=== PATIENT | female | born 1970 | race Caucasian/White ===

== ENCOUNTER 2024-06-01 18:03 | Emergency (ER) | payer OTHER, SELFPAY ==
[2024-06-01 18:10] VITALS: BP 122/72; PULSE 81; RESP 16; TEMP 36.8; O2SAT 100
--- NOTE | 2024-06-01 18:22 | ED.URI ---
HPI - URI/Sore Throat General Chief Complaint: Upper Respiratory Infection Stated Complaint: Sore Throat/Body Aches Time Seen by Provider: 06/01/24 18:40 Source: patient and RN notes reviewed Mode of arrival: ambulatory Limitations: no limitations History of Present Illness HPI Narrative: 54-year-old female presents concern for sore throat, fatigue, body aches that started couple of days ago. Reports her daughter has similar symptoms. MD elicited complaint: sore throat Related Data Home Medications Medication Instructions Recorded Confirmed albuterol 06/01/24 Allergies Allergy/AdvReac Type Severity Reaction Status Date / Time clindamycin Allergy Intermediate HIVES Verified 10/15/19 18:54 mold Allergy Mild Sneezing Verified 10/15/19 18:54 pollen extracts Allergy Mild Sneezing Verified 10/15/19 18:54 Review of Systems Review of Systems: CONSTITUTIONAL: Reports malaise, fatigue EYES: Denies visual changes, redness, or discharge. ENT: Denies rhinorrhea, congestion, sinus pain, otalgia. Reports sore throat. CARDIOVASCULAR: Denies chest pain, palpitations, or edema. RESPIRATORY: Denies cough. Denies dyspnea. GASTROINTESTINAL: Denies abdominal pain, nausea, vomiting, diarrhea SKIN: Denies rash or itching. MUSCULOSKELETAL: Reports myalgia. NEUROLOGIC: Reports headache. All systems reviewed & are unremarkable except as noted in HPI and below PMFSH Past Medical History Medical History (Updated 06/01/24 @ 19:11 by Tamra Ramos NP) Asthma Insomnia Comments At time of signature, agree with nursing past medical, surgical, social and family history. There is no relevant family history pertinent to the presenting complaint Exam Narrative: GENERAL: Well-appearing, well-nourished, and in no acute distress. HEAD: Normocephalic EYES: PERRLA, conjunctivae clear ENT: Nares clear. Mucous membranes moist. TM pearly bender with dull light reflex bilaterally; no tragal tenderness. Oropharynx not erythematous without lesions. Tonsils not enlarged and without exudate, no drooling, no hoarseness, no trismus, uvula midline. NECK: Supple. No lymphadenopathy CHEST: Clear to auscultation, breath sounds equal. No wheezing, rhonchi, rales, or stridor. No respiratory distress, speaks in full sentences. HEART: Regular rate and rhythm. No murmur heard. SKIN: Warm, dry, no rash. NEURO: Alert and oriented x3. PSYCH: Normal mood and affect Course Course Emergency Course: Patient is aware of diagnosis, understands and agrees to treatment plan. Anticipatory guidance given. Patient agrees to follow-up as directed and is aware of reasons to seek care at the emergency department. Portions of this record may have been created with voice recognition software Level of Care: Express Care Visit Vital Signs Vital signs: Vital Signs Temperature 98.3 F 06/01/24 18:10 Pulse Rate 81 06/01/24 18:10 Respiratory Rate 16 06/01/24 18:10 Blood Pressure 122/72 06/01/24 18:10 Pulse Oximetry 100 06/01/24 18:10 Temperature 98.3 F 06/01/24 18:10 Pulse Rate 81 06/01/24 18:10 Respiratory Rate 16 06/01/24 18:10 Blood Pressure 122/72 06/01/24 18:10 Pulse Oximetry 100 06/01/24 18:10 Reviewed. MDM - URI/Sore Throat MDM Narrative Medical decision making narrative: Differential diagnosis considered: Lyon virus, strep pharyngitis, allergic rhinitis, upper respiratory tract infection, sinusitis, rhinosinusitis, nasopharyngitis. viral pharyngitis, otitis media, otitis externa, pneumonia, bronchitis, viral cough syndrome, viral syndrome, and influenza. Exam findings show no acute concerns or changes; patient is non-toxic appearing and is in no distress. Patient is appropriate for outpatient treatment and follow-up. Lab Data Attestation: I reviewed the patient's lab results. Labs: Lab Results 06/01/24 Range/Units 18:47 POC Grp A Strep Screen Negative Critical Care Time Critical Care
[2024-06-01 18:50] LABS: EDSTREPNEGPOS1 Negative
== END 2024-06-01 19:17 | disposition home or self-care (01) ==
PROVIDERS: Emergency Provider Nurse Practitioner
DX: J06.9 Acute upper respiratory infection, unspecified (principal); J45.909 Unspecified asthma, uncomplicated
CPT/HCPCS: 87081; 87880; 99213; G0463

== ENCOUNTER 2024-08-31 16:12 | Emergency (ER) | payer OTHER, SELFPAY ==
--- NOTE | 2024-08-31 16:16 | ED.URI ---
HPI - URI/Sore Throat General Chief Complaint: Upper Respiratory Infection Stated Complaint: cough/throat Time Seen by Provider: 08/31/24 16:28 Source: patient and RN notes reviewed Mode of arrival: ambulatory Limitations: no limitations History of Present Illness HPI Narrative: 54-year-old female presents concern for 1 and half week history of dry barking cough. She reports it has gotten worse and when she lays down she feels short of breath. She has an albuterol inhaler that she has used but she feels like it has not helped. She last used about 3 hours ago. She denies fever. She reports postnasal drip and sore throat. MD elicited complaint: cough Related Data Home Medications Medication Instructions Recorded Confirmed albuterol sulfate 90 mcg/actuation inhalation 08/31/24 aerosol inhaler Allergies Allergy/AdvReac Type Severity Reaction Status Date / Time clindamycin Allergy Intermediate HIVES Verified 10/15/19 18:54 mold Allergy Mild Sneezing Verified 10/15/19 18:54 pollen extracts Allergy Mild Sneezing Verified 10/15/19 18:54 Review of Systems Review of Systems: CONSTITUTIONAL: Denies malaise, chills, sweats, or fever. EYES: Denies visual changes, redness, or discharge. ENT: Reports rhinorrhea, postnasal drip. Denies congestion, sinus pain, otalgia and sore throat. CARDIOVASCULAR: Denies chest pain, palpitations, or edema. RESPIRATORY: Reports barking cough. Reports positional dyspnea. GASTROINTESTINAL: Denies abdominal pain, nausea, vomiting, diarrhea SKIN: Denies rash or itching. MUSCULOSKELETAL: Denies myalgia. NEUROLOGIC: Denies headache. All systems reviewed & are unremarkable except as noted in HPI and below PMFSH Past Medical History Medical History (Updated 08/31/24 @ 16:36 by Tamra Ramos NP) Asthma Insomnia Comments At time of signature, agree with nursing past medical, surgical, social and family history. There is no relevant family history pertinent to the presenting complaint Exam Narrative: GENERAL: Well-appearing, well-nourished, and in no acute distress. HEAD: Normocephalic EYES: PERRLA, conjunctivae clear ENT: Nares clear. Mucous membranes moist. TM pearly bender with dull light reflex bilaterally; no tragal tenderness. Oropharynx not erythematous without lesions. Tonsils not enlarged and without exudate, no drooling, no hoarseness, no trismus, uvula midline. NECK: Supple. No lymphadenopathy CHEST: Clear to auscultation, breath sounds equal. No wheezing, rhonchi, rales, or stridor. No respiratory distress, speaks in full sentences. Persistent cough noted HEART: Regular rate and rhythm. No murmur heard. SKIN: Warm, dry, no rash. NEURO: Alert and oriented x3. PSYCH: Normal mood and affect Course Course Emergency Course: Patient is aware of diagnosis, understands and agrees to treatment plan. Anticipatory guidance given. Patient agrees to follow-up as directed and is aware of reasons to seek care at the emergency department. Portions of this record may have been created with voice recognition software Level of Care: Express Care Visit Vital Signs Vital signs: Reviewed. MDM - URI/Sore Throat MDM Narrative Medical decision making narrative: Differential diagnosis considered: Lyon virus, strep pharyngitis, allergic rhinitis, upper respiratory tract infection, sinusitis, rhinosinusitis, nasopharyngitis. viral pharyngitis, otitis media, otitis externa, pneumonia, bronchitis, viral cough syndrome, viral syndrome, and influenza. Exam findings show no acute concerns or changes; patient is non-toxic appearing and is in no distress. Patient is appropriate for outpatient treatment and follow-up. Lab Data Attestation: I reviewed the patient's lab results. Critical Care Time Critical Care Time Critical Care Time: No Discharge Plan Discharge Clinical Impression: Lower respiratory tract infection Patient Disposition: Home, Self-Care Condition: Stable Instructions: Antibiotic Form, Acute Cough (ED) Additional Instructions: Take medications as prescribed Recommend antihistamine such as Benadryl at night time and Zyrtec or Hazel during the day Cough syrup may cause drowsiness; avoid driving or take it at night time. Continue to Use your inhaler as needed for cough, wheezing, shortness of breath or chest tightness. Also, recommend symptomatic treatment includes: rest, fluids, and increase humidity of the air at home. Recommend Acetaminophen as directed on the bottle to reduce fever, pain, headache. Avoid smoking/second-hand smoke. Please schedule a follow-up visit with your personal physician for further evaluation and treatment within 3-5days. If your symptoms persist, change or worsen significantly before you can contact your personal physician then please, without delay, go to the emergency department for further evaluation. Prescriptions: New azithromycin [Zithromax Z-Jim] 250 mg tablet See Rx Instructions .ROUTE .COMPLEX Qty: 6 0RF Rx Instructions: take 500 mg today (day 1), then 250 mg for 4 days (days 2-5) codeine-guaifenesin [Virtussin AC] 10-100 mg/5 mL liquid 5 ml PO Q6H PRN (Reason: cough) Qty: 120 0RF methylprednisolone [Medrol (Jim)] 4 mg tablets,dose pack See Rx Instructions .ROUTE .COMPLEX Qty: 21 0RF Rx Instructions: orally per package directions No Action albuterol sulfate 90 mcg/actuation HFA aerosol inhaler INHALATION Follow-up/Referrals: Jacques,Vikki Andersen CNP [Primary Care Provider] - Stand Alone Forms: Work/School Release IP Time of Disposition: 16:39
[2024-08-31 16:19] VITALS: BP 132/82; PULSE 87; RESP 16; TEMP 37; O2SAT 99
== END 2024-08-31 16:43 | disposition home or self-care (01) ==
PROVIDERS: Emergency Provider Nurse Practitioner; PCP Nurse Practitioner
DX: J22 Unspecified acute lower respiratory infection (principal); J45.909 Unspecified asthma, uncomplicated
CPT/HCPCS: 99213; G0463

== ENCOUNTER 2025-05-02 16:45 | Emergency (ER) | payer OTHER, SELFPAY ==
--- OUTSIDE RECORDS SUMMARY | 2025-05-02 16:47 | XMS_ITS | Clinical Summary ---
Author Organization [facility] Address [address] [place] [address] Care Team Providers Care Operations Support Coordinator Name Role Phone Courtney Jeffers DO Primary Care Provider [phone] [facility],non-owned Affiliates and Associated Physician Practices is amultiple site organization consisting of ambulatory clinics and hospital sitesin [place], [place], [place] and [place]. This disclosure is being madepursuant to the Care Everywhere program and may not contain all information available regarding this patient. Last updated 18.[facility] Allergies Active Allergy Reactions Criticality Noted Date Comments Clindamycin Urticaria Medium 09/02/2018 Dog Epithelium Other,Wheezing High 04/30/2021 Precipitates an Asthma attack. Medications * Be aware that medications may not be up to date on this document. Alwaysverify current medications with the patient. zolpidem (AMBIEN) 10 MG tablet Take 1 (one) tablet by mouth nightly as needed FOR SLEEP 02/27/2022 Active albuterol HFA (Proventil; Ventolin; Proair) 108 (90 Base) MCG/ACT inhaler Inhale 2 (two) puffs by mouth every 6 hours as needed 11/03/2022 Active Active Problems Problem Noted Date Diagnosed Date Solar lentigo 07/20/2020 Skin fissure 07/20/2020 Seborrheic keratosis 07/20/2020 Melanocytic nevi of trunk 07/20/2020 Family history of melanoma 07/20/2020 Atopic dermatitis 06/06/2019 Overview (07/20/2020): Last Assessment & Plan: Rx given, use as directed. Family History Medical History Relation Name Comments None Known Brother Cancer - Skin, Melanoma Father None Known Maternal Aunt None Known Maternal Grandfather None Known Maternal Grandmother None Known Maternal Uncle None Known Mother None Known Other None Known Paternal Aunt None Known Paternal Grandfather None Known Paternal Grandmother None Known Paternal Uncle None Known Sister Asthma Neg Hx CVA Neg Hx Cancer - Breast Neg Hx Cancer - Other Neg Hx Cancer - Skin, Non Melanoma Neg Hx Eczema Neg Hx Hemophilia Neg Hx Psoriasis Neg Hx Relation Name Status Comments Brother Father Maternal Aunt Maternal Grandfather Maternal Grandmother Maternal Uncle Mother Other Paternal Aunt Paternal Grandfather Paternal Grandmother Paternal Uncle Sister Social History Tobacco Use Types Packs/Day Years Used Date Smoking Tobacco: Never Smokeless Tobacco: Never Tobacco Cessation:Counseling Given: Yes Comments No Sex and Gender Information Value Date Recorded Sex Assigned at Not on file 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 Gender Identity Not on file Sexual Orientation Not on file Last Filed Vital Signs Vital Sign Reading Time Taken Comments Blood Pressure 112/70 11/12/2019 4:24 PM ROLLER LEVELER OPERATOR Pulse 76 11/12/2019 4:24 PM ROLLER LEVELER OPERATOR Temperature 37.1 C (98.7 F) 11/12/2019 4:24 PM ROLLER LEVELER OPERATOR Respiratory Rate 18 11/12/2019 4:24 PM ROLLER LEVELER OPERATOR Oxygen Saturation 98% 11/12/2019 4:24 PM ROLLER LEVELER OPERATOR Inhaled Oxygen Concentration - - Weight 63.5 kg (140 lb) 11/12/2019 4:24 PM ROLLER LEVELER OPERATOR Height 171.5 cm (5' 7.5) 11/12/2019 4:24 PM ROLLER LEVELER OPERATOR Body Mass Index 21.6 11/12/2019 4:24 PM ROLLER LEVELER OPERATOR Plan of Treatment Health Maintenance Due Date Last Done Comments COLOGUARD (AGES 45-75) - COLON CA SCREENING 1968 CT COLONOGRAPHY - COLON CA SCREENING 1968 FLEX SIG - COLON CA SCREENING 1968 LIPID TESTING 1968 HIV SCREENING 1983 HEPATITIS C SCREENING 04/23/1986 DTAP/TDAP/TD VACCINES (1 - Tdap) 1987 HEPATITIS B VACCINE (1 of 3 - 19+ 3-dose series) 1987 PNEUMOCOCCAL VACCINE 50+ (1 of 1 - PCV) 2018 ZOSTER VACCINE (1 of 2) 2018 MAMMOGRAM 06/23/2020 06/23/2018 FIT - COLON CA SCREENING 07/06/2020 07/06/2019 PAP SMEAR 07/06/2022 07/06/2019 COVID-19 VACCINE (3 - season) 2024 07/20/2021, 10/26/2020 DEPRESSION SCREENING 09/28/2024 INFLUENZA VACCINE (#1) 2025 , 07/20/2020, 08/05/2019, Additional history exists COLON MONITORING 06/14/2028 06/14/2018 COLONOSCOPY - COLON CA SCREENING 06/14/2028 06/14/2018 Colorectal Cancer Screening 06/14/2028 HIB VACCINE Aged Out No longer eligi ble based on patient's age to complete this topic HPV VACCINE Aged Out No longer eligi ble based on patient's age to complete this topic MENINGOCOCCAL (Group B) VACCINE SHARED DECISION-MAKING Aged Out No longer eligible based on patient's age to complete this topic MENINGOCOCCAL GROUPS A/C/Y/W VACCINE Aged Out No longer eligible based on patient's age to complete this topic Insurance AETNA AETNA Care Teams Operations Support Coordinator Relationship Specialty Start Date End Date Courtney Jeffers DO [address] [phone] PCP - General Family Medicine 09/11/23
--- OUTSIDE RECORDS SUMMARY | 2025-05-02 16:47 | XMS_ITS | Encounter Summary ---
Author Organization [facility] Address 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 Gender Identity Not on file Sexual Orientation Not on file documented as of this encounter Plan of Treatment Not on file documented as of this encounter Procedures Procedure Name Priority Date/Time Associated Diagnosis Comments CBC WITH DIFFERENTIAL Routine 05/30/2006 6:14 PM CDT CBC WITH DIFFERENTIAL Routine 05/30/2006 6:14 PM CDT HCG QUANTITATIVE, BLOOD Routine 05/30/2006 6:14 PM CDT documented in this encounter Results * (ABNORMAL) HCG QUANTITATIVE, BLOOD (05/30/2006 6:14 PM CDT) HCG QUANT, BLOOD 12,724(H) 0 - 5 mIU/mL INTERFACE SYSTEM Comment: Result of 5 - 25 mIU/mL is indeterminant for , repeat of test recommemded in 48 hours. Reference Range: Gestational Age: 3 Weeks 5.8 - 71.2 mIU/mL 4 Weeks 9.5 - 750 mIU/mL 5 Weeks 217 - 7138 mIU/mL 6 Weeks 158 - 31,795 mIU/mL 7 Weeks 3697 - 163,563 mIU/mL 8 Weeks 32,065 - 149,571 mIU/mL 9 Weeks 63,803 - 151,410 mIU/mL 10 Weeks 46,509 - 186,977 mIU/mL 12 Weeks 27,832 - 210,612 mIU/mL 14 Weeks 13,950 - 62,530 mIU/mL 15 Weeks 12,039 - 70,971 mIU/mL 16 Weeks 9040 - 56,451 mIU/mL 17 Weeks 8175 - 55,868 mIU/mL 18 Weeks 8099 - 58,176 mIU/mL Heterophile antibodies and other interfering substances in the serum of some patients may cause a false-positive result in this assay. Before making a diagnosis of malignancy or ectopic ,the result of thi s test should be confirmed with a urine HCG test and correlated with other clinical evidence. RESULT COMMENT, CHEMISTRY INTERFACE SYSTEM Comment: Results called to Noni at 05/30/2006 7:25 PM and read back verified. Preliminary report given to Camille 19:12. 05/30/2006 6:14 PM CDT us Historical Provider CHEMISTRY ORDERABLES Final R esult INTERFACE SYSTEM Refer to clinic/hospital department * CBC WITH DIFFERENTIAL (05/30/2006 6:14 PM CDT) NEUTROPHILS 65 45 - 70 % INTERFAC E SYSTEM LYMPHOCYTES 21 16 - 45 % INTERFAC E SYSTEM MONOCYTES 11 3 - 13 % INTERFACE SYSTEM EOSINOPHILS 3 0 - 7 % INTERFAC E SYSTEM BASOPHILS 1 0 - 2 % INTERFACE SYSTEM NEUTROPHIL ABSOLUTE 6.01 1.90 - 7.00 K/uL INTERFACE SYSTEM LYMPHOCYTE ABSOLUTE 1.98 0.70 - 4.50 K/uL INTERFACE SYSTEM MONOCYTE ABSOLUTE 0.98 0.10 - 1.30 K/uL INTERFACE SYSTEM EOSINOPHIL ABSOLUTE 0.26 0.00 - 0.70 K/uL INTERFACE SYSTEM BASOPHILS ABSOLUTE 0.06 0.00 - 0.20 K/uL INTERFACE SYSTEM 05/30/2006 6:14 PM CDT Historical Provider HEMATOLOGY ORDERABLES Final Result Performing Organization Address City/State/[facility] Co de Phone Number INTERFACE SYSTEM Refer to clinic/hospital department * CBC WITH DIFFERENTIAL (05/30/2006 6:14 PM CDT) WBC 9.3 4.0 - 9.8 K/uL INTERFACE SYSTEM RBC 4.37 3.90 - 4.90 M/uL INTERFACE SYSTEM HEMOGLOBIN 13.2 11.8 - 14.8 g/dL INTERFACE SYSTEM HEMATOCRIT 38.0 35.5 - 44.0 % INTERFACE SYSTEM MCV 87.0 82.0 - 99.0 fL INTERFACE SYSTEM MCH 30.2 27.2 - 32.6 pg INTERFACE SYSTEM MCHC 34.7 31.5 - 35.5 % INTERFACE SYSTEM RDW 13.0 11.5 - 14.5 % INTERFACE SYSTEM RDW-STDEV 41.6 37.1 - 48.7 fL INTERFACE SYSTEM PLATELETS 321 140 - 350 K/uL INTERFACE SYSTEM MPV 10.1 9.3 - 12.4 fL INTERFACE SYSTEM 05/30/2006 6:14 PM CDT Historical Provider HEMATOLOGY ORDERABLES Final Result Performing Organization Address City/State/[facility] Co de Phone Number INTERFACE SYSTEM Refer to clinic/hospital department documented in this encounter Visit Diagnoses Diagnosis Threatened , antepartum- Primary documented in this encounter
--- OUTSIDE RECORDS SUMMARY | 2025-05-02 16:47 | XMS_ITS | Referral Summary ---
Author Organization [facility] Medical [facility] Building B Address [address] [place] [address] Care Team Providers Care Clinical Research Assistant Name Role Phone Stefano Dumont MD Unavailable [phone] Kathryn Noriega NP Unavailable [phone] Vikki Hanna NP Primary Care Provider [phone] Encounters Date Type Department Care Team Description 03/16/2025 Results Follow-Up [facility] Primary Care at [address] [place] [id number] Vikki Hanna NP Screening Mammogram Bilateral W Barak 03/16/2025 8:24 AM CDT - 03/16/2025 11:59 PM CDT Hospital Encounter [facility] [address] [place] [id number] Screening mammogram, encounter for Discharge Disposition: Discharge to home or self care 03/10/2025 12:47 PM CDT - 03/10/2025 3:44 PM CDT Emergency [facility] Department [address] [place] [address] Acute midline low back pain without sciatica (Primary Dx); Gall stones Discharge Disposition: Discharge to home or self care from Last 3 Months Allergies Active Allergy Reactions Criticality Noted Date Comments Clindamycin Urticaria Medium 09/02/2018 Clindamycin Hcl Hives,Rash Medium 02/12/2015 Dog Dander Chest tightness,Wheezing High 04/30/2021 Precipitates an Asthma attack. Medications albuterol HFA (PROVENTIL HFA,VENTOLIN HFA,PROAIR HFA) 90 mcg/actuation inhalerIndicatio ns:Moderate persistent asthma without complication INHALE 2 PUFFS EVERY 6 HOURS NEEDED FOR WHEEZING 6.7 each 3 09/05/20 24 Active montelukast (SINGULAIR) 10 mg tablet Take 1 tablet (10 mg total) by mouth nightly 90 tablet 3 09/30/19 25 026 Active lidocaine (LIDODERM) 5 % Place 1 patch on the skin daily for 12 hours for 14 days Remove & discard patch within 12 hours or as directed by MD. 14 patch 03/10/20 25 Active naproxen (NAPROSYN) 500 mg tablet Take 1 tablet (500 mg total) by mouth 2 (two) times a day with meals 30 tablet 03/10/20 25 Active methocarbamoL (ROBAXIN) 500 mg tablet Take 1 tablet (500 mg total) by mouth 2 (two) times a day 20 tablet 03/10/20 25 Active zolpidem (AMBIEN) 10 mg tabletIndication s:Insomnia secondary to anxiety TAKE 1 TABLET BY MOUTH AT BEDTIME NEEDED FOR SLEEP 15 tablet 05/01/20 25 Active zolpidem (AMBIEN) 10 mg tabletIndication s:Insomnia secondary to anxiety TAKE 1 TABLET BY MOUTH EVERY DAY AT BEDTIME NEEDED FOR SLEEP 15 tablet 03/30/20 25 025 Discontinued Active Problems Problem Noted Date Diagnosed Date Annual physical exam 11/04/2023 Assessment & Plan (11/05/2023 5:18 PM PHOTOGRAPHIC EQUIPMENT TECHNICIAN): - New or chronic worsening conditions: no significant acute issues on this visit - Mental health: no significant psychiatric/mental health conditions affecting her day to day functioning - Dental health: Up to date with regular dental care and cleaning. Discussed importance of regular tooth brushing, flossing, and dental visits. - Nutrition: Stressed importance of moderation in sodium/caffeine intake, saturated fat and cholesterol, caloric balance, sufficient intake of fresh fruits, vegetables - Exercise: Stressed the importance of regular exercise - Immunizations: Age and sex appropriate immunizations reviewed and offered Bilateral foot pain 11/03/2022 Assessment & Plan (11/03/2022 3:38 PM PHOTOGRAPHIC EQUIPMENT TECHNICIAN): Patient already has an established relationship with a production control technologist. Patient states that she would call on her own and schedule an appointment. In the meantime, may try [id number] pain reliever of choice. Scalp mass 10/25/2020 Assessment & Plan (10/25/2020 1:26 PM PHOTOGRAPHIC EQUIPMENT TECHNICIAN): Referred to plastic surgeon for further evaluation and management. Family history of melanoma 07/20/2020 Melanocytic nevi of trunk 07/20/2020 Seborrheic keratosis 07/20/2020 Solar lentigo 07/20/2020 Atopic dermatitis 06/06/2019 Assessment & Plan (06/06/2019 8:31 PM CDT): Rx given, use as directed. 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 Assessment & Plan (10/28/2021 10:45 PM PHOTOGRAPHIC EQUIPMENT TECHNICIAN): Clinically improved, continue current prescription medications. Assessment & Plan (04/25/2021 11:15 AM CDT): Clinically improved, continue current meds. Assessment & Plan (10/25/2020 1:26 PM PHOTOGRAPHIC EQUIPMENT TECHNICIAN): Stable. Cont. Current meds. Assessment & Plan (04/24/2020 1:11 PM CDT): Rx sent, ambien 5 - 10 mg qhs prn insomnia. Assessment & Plan (10/24/2019 8:52 AM PHOTOGRAPHIC EQUIPMENT TECHNICIAN): Clinically improved, continue current meds. Assessment & Plan (05/02/2019 3:29 PM CDT): Clinically improved, continue current meds. Zolpidem 5 mg qhs prn. Assessment & Plan (04/14/2019 6:36 PM CDT): Trial of ambien. Will follow. Fatigue 04/14/2019 Assessment & Plan (04/14/2019 6:35 PM CDT): Labs ordered, will follow. Body mass index (BMI) of 24.0 to 24.9 in adult 0 04/14/2019 Assessment & Plan (11/05/2023 5:17 PM PHOTOGRAPHIC EQUIPMENT TECHNICIAN): Wt Readings from Last 3 Encounters: 11/04/23 69.6 kg (153 lb 8 oz) 11/03/22 69.6 kg (153 lb 8 oz) 10/28/21 68.9 kg (151 lb 12.8 oz) Body mass index is 24.04 kg/m . -Discussed recommendations for exercise at least 30 minutes moderate to vigorous exercise most days of the week. (minimum 150 minutes weekly) -Discussed importance of well-balanced diet. Asthma 08/31/2014 Overview (01/02/2017): Asthma Assessment & Plan (11/03/2022 3:38 PM PHOTOGRAPHIC EQUIPMENT TECHNICIAN): Asymptomatic, at baseline, continue current prescription medications, albuterol. Assessment & Plan (04/24/2020 1:11 PM CDT): Asx. Cont current mgmt. Assessment & Plan (10/24/2019 8:52 AM PHOTOGRAPHIC EQUIPMENT TECHNICIAN): Stable. Cont. Current meds. Assessment & Plan (04/14/2019 6:36 PM CDT): At baseline, continue current meds. Albuterol HFA inh 2 puffs q6h prn. Assessment & Plan (03/25/2018 3:38 PM CDT): Asthma is improving with treatment. The patient is experiencing monthly daytime asthma symptoms. She is experiencing monthly nighttime asthma symptoms. Discussed monitoring symptoms and use of quick-relief medications and contacting us early in the course of exacerbations. Warning signs of respiratory distress were reviewed with the patient. Seasonal allergic rhinitis 08/31/2014 Overview (01/02/2017): Seasonal nasal allergies Assessment & Plan (08/05/2019 10:09 AM PHOTOGRAPHIC EQUIPMENT TECHNICIAN): Has been taking Sudafed, advised patient to switch to Zyrtec or Claritin for daily use. Resolved Problems Problem Noted Date Diagnosed Date Resolved Date Mild reactive airways disease 09/30/2024 09/30/2024 Establishing care with jackeline wadsworth, encounter for 06/29/2024 09/30/2024 Skin fissure 07/20/2020 11/03/2022 Generalized anxiety disorder 04/14/2019 04/24/2020 Assessment & Plan (10/24/2019 10:23 AM PHOTOGRAPHIC EQUIPMENT TECHNICIAN): Stable, improved with rest. Assessment & Plan (05/02/2019 3:28 PM CDT): Trial of Lexapro. Encouraged counseling, patient will call her insurance company for an in-network referral. Assessment & Plan (04/14/2019 6:35 PM CDT): Encouraged counseling. Encouraged patient to contact her insurance company for an in-network referral. Close f/u. Go to nearest ER if you feel you will be a harm to yourself or others. Immunizations Immunization Administration Dates Next Due Influenza, Quadrivalent, Rena l Culture-based MDCK, Preservative Free, Antibiotic Free, Intramuscular 07/20/2020 Influenza, Quadrivalent, Rec ombinant, Egg Free, Preservative Free, Intramuscular 06/30/2018 Influenza, Quadrivalent, Spl it, Preservative Free, Intramuscular 08/23/2022,06/17/2021,08/05/2019 Influenza, Trivalent, IM (MDV) 05/10/2014,2012 Influenza, Trivalent, Preser vative Free, Intramuscular 06/12/2015 Influenza, Unspecified 06/29/2024(Deferr ed: Patient Refused),07/06/2023(Deferred: Patient Refused),11/03/2022(Deferred: Patient Refused),07/18/2018,08/17/2017 Moderna SARS-CoV-2 Monovalen t Vaccination (12+ YRS) 07/20/2021,10/26/2020 Pneumococcal Conjugate Pcv20 06/12/2023 Tdap 02/18/2019,11/29/2008 ZOSTER Recombinant 08/23/2022,03/07/2022 Social History Tobacco Use Types Packs/Day Years Used Date Smoking Tobacco: Never Smokeless Tobacco: Never Tobacco Cessation:Counseling Given: Not Answered Alcohol Use Standard Drinks/Week Comments Yes 0 (1 standard drink = 0.6 oz pur e alcohol) AUDIT-C Answer Date Recorded Q1: How often do you have a drink containing alc ohol? Monthly or less 11/04/2023 Q2: How many drinks containi ng alcohol do you have on a typical day when you are drinking? 1 or 2 11/04/2023 Q3: How often do you have si x or more drinks on one occasion? Never 11/04/2023 PHQ-2 Answer Date Recorded PHQ-2 Total Score (If total score is 3 or more points, staff should administer the PHQ-9) 0 06/29/2024 Personal Safety Answer Date Recorded Have you ever been in or are you currently in a harmful physical or emotional relationship or is someone making you feel afraid or unsafe? Denies 03/10/2025 Comments No Sex and Gender Information Value Date Recorded Sex Assigned at Not on file Legal Sex Female 11:21 PM PHOTOGRAPHIC EQUIPMENT TECHNICIAN Gender Identity Female 10/21/2022 12:24 PM PHOTOGRAPHIC EQUIPMENT TECHNICIAN Sexual Orientation Straight 10/21/2022 12 :24 PM PHOTOGRAPHIC EQUIPMENT TECHNICIAN Last Filed Vital Signs Vital Sign Reading Time Taken Comments Blood Pressure 113/77 03/10/2025 11:07 AM CDT Pulse 83 03/10/2025 11:07 AM CDT Temperature 36.8 C (98.2 F) 03/10/2025 11:07 AM CDT Respiratory Rate 16 03/10/2025 11:07 AM CDT Oxygen Saturation 99% 03/10/2025 11:07 AM CDT Inhaled Oxygen Concentration - - Weight 71.7 kg (158 lb) 03/16/2025 8:29 AM CDT Height 170.2 cm (5' 7) 03/16/2025 8:29 AM CDT Body Mass Index 24.75 03/16/2025 8:29 AM CDT Plan of Treatment Not on file Procedures Procedure Name Priority Date/Time Associated Diagnosis Comments SCREENING MAMMOGRAM BILATERAL W BARAK Schedule Routine, Read Routine (OP Routine) 03/16/2025 8:39 AM CDT Screening mammogram, encounter for US RUQ ED 03/10/2025 3:[address] ABDOMEN PELVIS WO CONTRAST ED 03/10/2025 1:57 PM CDT URINALYSIS, MICROSCOPIC ONLY STAT 03/10/2025 1:47 PM CDT URINALYSIS AND REFLEX TO MICROSCOPIC AND CULTURE STAT 03/10/2025 1:47 PM CDT EGFR STAT 03/10/2025 1:13 PM CDT DIFFERENTIAL AUTO STAT 03/10/2025 1:1 3 PM CDT COMPREHENSIVE METABOLIC PANEL STAT 03/10/2025 1:13 PM CDT CBC WITH AUTO DIFFERENTIAL STAT 03/10/2025 1:13 PM CDT HEPATITIS C ANTIBODY Routine 10/25/2020 11:14 AM PHOTOGRAPHIC EQUIPMENT TECHNICIAN Encounter for hepatitis C screening test for low risk patient COLONOSCOPY 06/14/2018 10:12 AM CDT HM PAP SMEAR WITH HPV Routine 06/17/2017 from Last 3 Months or Most Recently Relevant to Health Maintenance Results * Screening Mammogram Bilateral W Barak (03/16/2025 8:39 AM CDT) Anatomical Region Laterality Modality Breast Bilateral Mammography Impressions 03/16/2025 9:18 AM CDT Bilateral No evidence of malignancy in either breast. OVERALL BI-RADS FINAL ASSESSMENT: 1 - Negative RECOMMENDATION: Recommend bilateral annual screening mammography. Narrative 03/16/2025 9:18 AM CDT EXAMINATION: Screening Mammogram Bilateral W Barak: 03/16/2025 COMPARISON: Relevant prior studies available at the time of interpretation were reviewed. TECHNIQUE: Mammography was performed with 2D and digital breast tomosynthesis (DBT) images. CAD was utilized. BREAST PARENCHYMAL COMPOSITION: The breasts are heterogeneously dense, which may obscure small masses. FINDINGS: Bilateral There is no suspicious mass, calcification, or architectural distortion in either breast. us Self Screening Mammogram IMG MAMMO PROCEDURES Fi nal Result * US RUQ (03/10/2025 3:07 PM CDT) Anatomical Region Laterality Modality Abdomen N/A Ultrasound 03/10/2025 3:12 PM CDT Narrative 03/10/2025 3:16 PM CDT EXAM DESCRIPTION: US RUQ REASON FOR STUDY: Concern for cholecystitis on CT, flank pain and back pain on the right today. TECHNIQUE: Ultrasound of the right upper quadrant of the abdomen was performed with grayscale and color doppler. COMPARISON: 03/10/2025 FINDINGS: PANCREAS: Visualized portions of the pancreas are within normal limits. Portions of the pancreatic body and tail are obscured due to bowel gas. LIVER: The liver appears normal in echotexture and echogenicity. No focal lesion identified. The main portal vein is patent with antegrade flow. GALLBLADDER: Gallbladder is difficult to visualized, it appears contracted. Internal echoes suggesting debris and/or small stones identified. No marked wall thickening, the wall measures 0.29 cm. No surrounding fluid collection. Patient does report tenderness while scanning over the fundus. BILIARY: There is no intrahepatic or extrahepatic biliary ductal dilatation. Common bile duct measures 0.63 cm in diameter. RIGHT KIDNEY: Normal size. Normal echogenicity. No solid mass or cyst. No hydronephrosis. Measures 9.5 cm in length. OTHER: No other significant findings. IMPRESSION: 1. Gallbladder is difficult to visualize, it appears contracted with internal debris and/or small stones. No wall thickening or surrounding fluid collection. Patient does report tenderness while scanning over the fundus. Please correlate clinically for acute cholecystitis. 2. No biliary ductal dilatation. THIS IS AN ELECTRONICALLY VERIFIED FINAL REPORT 03/10/2025 3:16 PM - Electronically signed by Elie Kelly M.D. RB: RB Report ID: [id number] Reading Location: [id number] Procedure Note Elie Kelly MD - 03/10/2025 EXAM DESCRIPTION: US RUQ REASON FOR STUDY: Concern for cholecystitis on CT, flank pain and backpain on the right today. TECHNIQUE: Ultrasound of the right upper quadrant of the abdomen wasperformed with grayscale and color doppler. COMPARISON: 03/10/2025 FINDINGS: PANCREAS: Visualized portions of the pancreas are within normal limits. Portions of the pancreatic body and tail are obscured due to bowel gas. LIVER: The liver appears normal in echotexture and echogenicity. Nofocal lesion identified. The main portal vein is patent with antegrade flow. GALLBLADDER: Gallbladder is difficult to visualized, it appearscontracted. Internal echoes suggesting debris and/or small stones identified. Nomarked wall thickening, the wall measures 0.29 cm. No surrounding fluidcollection. Patient does report tenderness while scanning over the fundus. BILIARY: There is no intrahepatic or extrahepatic biliary ductaldilatation. Common bile duct measures 0.63 cm in diameter. RIGHT KIDNEY: Normal size. Normal echogenicity. No solid mass or cyst.No hydronephrosis. Measures 9.5 cm in length. OTHER: No other significant findings. IMPRESSION: 1. Gallbladder is difficult to visualize, it appears contracted with internal debris and/or small stones. No wall thickening or surroundingfluid collection. Patient does report tenderness while scanning over the fundus. Please correlate clinically for acute cholecystitis. 2. No biliary ductal dilatation. THIS IS AN ELECTRONICALLY VERIFIED FINAL REPORT 03/10/2025 3:16 PM - Electronically signed by Elie Kelly M.D. RB: RB Report ID: [id number] Reading Location: [id number] us [facility] US PROCEDURES Final Result * CT Abdomen Pelvis WO Contrast (03/10/2025 1:57 PM CDT) Anatomical Region Laterality Modality Body N/A Computed Tomogra phy 03/10/2025 2:13 PM CDT Narrative 03/10/2025 2:16 PM CDT EXAM DESCRIPTION: CT ABDOMEN PELVIS WO CONTRAST REASON FOR STUDY: right flank pain, low back pain Pt has been having right lower back pain x 9 days. TECHNIQUE: CT scan of the abdomen and pelvis performed without intravenous and without oral contrast using helical scanning technique. Reconstructed coronal and sagittal MPR images reviewed. All images stored on PACS. Automated exposure control was used as a dose optimization technique for this examination. COMPARISON: None FINDINGS: The sensitivity for detection of visceral lesions is diminished without the use of intravenous contrast. LOWER CHEST: The heart size is normal. There is no definite evidence of a pericardial effusion. There are minimal atherosclerotic changes of the aorta. There is minimal bibasilar subsegmental atelectasis. There is a small hiatal hernia. LIVER: The liver is grossly normal in size and contour. GALLBLADDER: There is cholelithiasis with subtle gallbladder wall thickening and pericholecystic fat stranding. BILE DUCTS: No intrahepatic or extrahepatic ductal dilatation. SPLEEN: The spleen is grossly normal in size and unremarkable. PANCREAS: The pancreas has a grossly unremarkable unenhanced CT appearance. ADRENALS: The bilateral adrenal glands are grossly symmetrical and unremarkable. KIDNEYS/URINARY TRACT: There is a too small to characterize hypoattenuating lesion in the upper pole of the left kidney measuring 0.5 cm, which does not require follow-up imaging. There is no definite evidence of nephrolithiasis. There is no definite evidence of hydronephrosis or hydroureter. The urinary bladder is grossly unremarkable. GI: There is no definite evidence of bowel obstruction. The appendix is visualized without definite evidence of pericecal or periappendiceal inflammatory changes to suggest appendicitis. There are few scattered colonic diverticula without definite evidence of diverticulitis. There is a wsrytnny-mc-nlkdz amount of retained fecal debris in the colon. There is a small fat containing periumbilical hernia. There is no definite evidence of free air or fluid in the abdomen and pelvis. There is no definite unenhanced CT evidence of lymphadenopathy in the abdomen and pelvis. REPRODUCTIVE: There is a likely large panniculitis exophytic fibroid arising from the posterior uterine fundus. MUSCULOSKELETAL: There are mild degenerative changes of the spine. OTHER: No other abnormality. IMPRESSION: 1. No definite evidence of obstructive uropathy or nephrolithiasis. 2. Cholelithiasis with subtle gallbladder wall thickening and pericholecystic fat stranding, which raises the concern for cholecystitis. Further evaluation with gallbladder ultrasound or HIDA scan is recommended as clinically indicated. 3. No definite evidence of bowel obstruction. 4. Pexrehdz-hp-wkzek amount of retained fecal debris in the colon, which is concerning for constipation. 5. Likely large panniculitis fibroid arising off the posterior uterine fundus. Comparison to prior studies is recommended, if available, otherwise further evaluation with nonemergent pelvic ultrasound or MRI is recommended as clinically indicated. 6. Few scattered colonic diverticula without definite evidence of diverticulitis. 7. Normal appendix. THIS IS AN ELECTRONICALLY VERIFIED FINAL REPORT 03/10/2025 2:16 PM - Electronically signed by Pierre Sterling D.O. PS: PS Report ID: [id number] Reading Location: [id number] Procedure Note Pierre Sterling, DO - 03/10/2025 EXAM DESCRIPTION: CT ABDOMEN PELVIS WO CONTRAST REASON FOR STUDY: right flank pain, low back pain Pt has been having right lower back pain x 9 days. TECHNIQUE: CT scan of the abdomen and pelvis performed without intravenousand without oral contrast using helical scanning technique. Reconstructed coronal and sagittal MPR images reviewed. All images stored on PACS.Automated exposure control was used as a dose optimization technique for this examination. COMPARISON: None FINDINGS: The sensitivity for detection of visceral lesions is diminished withoutthe use of intravenous contrast. LOWER CHEST: The heart size is normal. There is no definite evidence ofa pericardial effusion. There are minimal atherosclerotic changes of theaorta. There is minimal bibasilar subsegmental atelectasis. There is a smallhiatal hernia. LIVER: The liver is grossly normal in size and contour. GALLBLADDER: There is cholelithiasis with subtle gallbladder wallthickening and pericholecystic fat stranding. BILE DUCTS: No intrahepatic or extrahepatic ductal dilatation. SPLEEN: The spleen is grossly normal in size and unremarkable. PANCREAS: The pancreas has a grossly unremarkable unenhanced CTappearance. ADRENALS: The bilateral adrenal glands are grossly symmetrical and unremarkable. KIDNEYS/URINARY TRACT: There is a too small to characterizehypoattenuating lesion in the upper pole of the left kidney measuring 0.5 cm, which doesnot require follow-up imaging. There is no definite evidence ofnephrolithiasis. There is no definite evidence of hydronephrosis or hydroureter. Theurinary bladder is grossly unremarkable. GI: There is no definite evidence of bowel obstruction. The appendix is visualized without definite evidence of pericecal or periappendiceal inflammatory changes to suggest appendicitis. There are few scatteredcolonic diverticula without definite evidence of diverticulitis. There is a koxterdi-xc-fykhx amount of retained fecal debris in the colon. There aline small fat containing periumbilical hernia. There is no definite evidenceof free air or fluid in the abdomen and pelvis. There is no definiteunenhanced CT evidence of lymphadenopathy in the abdomen and pelvis. REPRODUCTIVE: There is a likely large panniculitis exophytic fibroidarising from the posterior uterine fundus. MUSCULOSKELETAL: There are mild degenerative changes of the spine. OTHER: No other abnormality. IMPRESSION: 1. No definite evidence of obstructive uropathy or nephrolithiasis. 2. Cholelithiasis with subtle gallbladder wall thickening and pericholecystic fat stranding, which raises the concern for cholecystitis. Further evaluation with gallbladder ultrasound or HIDA scan is recommendedas clinically indicated. 3. No definite evidence of bowel obstruction. 4. Gcgrwzqy-fq-fwevo amount of retained fecal debris in the colon, whichis concerning for constipation. 5. Likely large panniculitis fibroid arising off the posterior uterine fundus. Comparison to prior studies is recommended, if available,otherwise further evaluation with nonemergent pelvic ultrasound or MRI isrecommended as clinically indicated. 6. Few scattered colonic diverticula without definite evidence of diverticulitis. 7. Normal appendix. THIS IS AN ELECTRONICALLY VERIFIED FINAL REPORT 03/10/2025 2:16 PM - Electronically signed by Pierre Sterling D.O. PS: PS Report ID: [id number] Reading Location: [id number] [facility] IM[facility] CT PROCEDURES Final Result * (ABNORMAL) Urinalysis reflex to microscopic and culture Urine (03/10/2025 1:47 PM CDT) Color, ur Straw Yellow Clarity, ur Clear Clear [facility] ([place]) Specific gravity, ur 1.011 1.003 - 1.030 [facility] ([place]) pH, urine 5.5 [facility] ([place]) Comment: Interpretive Data U rine pH is affected by diet, medications, systemic acid-base disturbances, and renal tubular function. pH may affect urinary stone formation. For example, urine pH below 6.0 may help reduce the tendency for calcium phosphate stones and pH greater than 6.0 may reduce the tendency for uric acid stone formation. Source: [facility] WebKite Current Interpretive Data was last revised on 2017 Protein, ur ql Negative Negative [facility] ([place]) Glucose, ur ql Negative Negative [facility] ([place]) Ketones, ur Negative Negative [facility] ([place]) Bilirubin, ur Negative Negative [facility] ([place]) Blood, ur Negative Negative [facility] ([place]) Urobilinogen, ur <2.0 <2.0 mg/dL [facility] ([place]) Nitrite, ur Negative Negative [facility] ([place]) Leukocyte esterase, ur 1+(A) Negative [facility] ([place]) UA reflex comment Reflex to microscopic UA will be performed. [facility] ([place]) Urine 03/10/2025 1:47 PM CDT 03/10/2025 1:52 PM CDT [facility] MICROBIOLOGY - GENERAL ORDE KINGA Final Result [facility] ([place]) [address] [facility] Department [place] [address] * (ABNORMAL) Urinalysis, microscopic only (03/10/2025 1:47 PM CDT) WBC, ur 0-5 0 - 5 /HPF RBC, ur 0-2 0 - 2 /HPF [facility] [place] ([place]) Epithelial cells, squamous, ur 1-5 0 - 5 /HPF [facility] [facility] ([place]) Mucous, ur Present(A) JONO Perez ([place]) Culture Reflex Comment Reflex conditions for urine culture (WBC >10) not met. [facility] ([place]) Urine 03/10/2025 1:47 PM CDT 03/10/2025 1:52 PM CDT us Guillermina LIVE LAB URINE ORDERABLES Final Resu lt JONO [facility] ([place]) 1 [facility] Department [place] [address] * eGFR (03/10/2025 1:13 PM CDT) eGFR 88 >=60 mL/min/1. 73 m2 Comment: Interpretive Data Reference Interval Normal >/= 90 mL/min/1.73m2 Mildly decreased* 60 - 89 mL/min/1.73m2 Mildly to moderately decreased 45 - 59 mL/min/1.73m2 Moderately to severely decreased 30 - 44 mL/min/1.73m2 Severely decreased 15 - 29 mL/min/1.73m2 Kidney Failure < 15 mL/min/1.73m2 *Relative to young adult level Estimated glomerular filtration rate is determined by the 2020 CKD-EPI equation recommended by the National Kidney Foundation (A Unifying Approach to GFR Estimation: Recommendations of the NKF-ASK Task Force on Reassessing the Inclusion of Race in Diagnosing Kidney Disease, JASN 202). The CKD-EPI equation should not be used for patients with unstable renal function and has not been validated in children and those over 70. Current interpretive data was last reviewed 2021. Blood 03/10/2025 1:13 PM CDT 03/10/2025 1:16 PM CDT us Guillermina LIVE LAB BLOOD ORDERABLES Final Resu lt JONO [facility]ANCO[facility] ([place]) 1 [facility] Department of Laboratories [place], [place] [id number] * Differential, auto (03/10/2025 1:13 PM CDT) Neutrophil abs 4.81 1.50 - 6.50 K/cumm Imm gran abs 0.03 0.00 - 0.10 K/cumm [facility] ([place]) Lymphocyte abs 1.54 0.80 - 3.30 K/cumm [facility] ([place]) Monocyte abs 0.76 0.20 - 0.80 K/cumm [facility] ([place]) Eosinophil abs 0.25 0.00 - 0.50 K/cumm [facility] ([place]) Basophil abs 0.08 0.00 - 0.10 K/cumm [facility] ([place]) Neutrophil pct 64.4 % [facility] ([place]) Comment: Interpretive Data Percent cell count reference ranges are not reported, since discordance with absolute values may lead to misinterpretation of CBC data. Current Interpretive Data was last revised on 2018. Imm gran pct 0.4 % [facility] ([place]) Comment: Interpretive Data Percent cell count reference ranges are not reported, since discordance with absolute values may lead to misinterpretation of CBC data. Current Interpretive Data was last revised on 2018. Lymphocyte pct 20.6 % [facility] ([place]) Comment: Interpretive Data Percent cell count reference ranges are not reported, since discordance with absolute values may lead to misinterpretation of CBC data. Current Interpretive Data was last revised on 2018. Monocyte pct 10.2 % [facility] ([place]) Comment: Interpretive Data Percent cell count reference ranges are not reported, since discordance with absolute values may lead to misinterpretation of CBC data. Current Interpretive Data was last revised on 2018. Eosinophil pct 3.3 % [facility] ([place]) Comment: Interpretive Data Percent cell count reference ranges are not reported, since discordance with absolute values may lead to misinterpretation of CBC data. Current Interpretive Data was last revised on 2018. Basophil pct 1.1 % [facility] ([place]) Comment: Interpretive Data Percent cell count reference ranges are not reported, since discordance with absolute values may lead to misinterpretation of CBC data. Current Interpretive Data was last revised on 2018. Blood 03/10/2025 1:13 PM CDT 03/10/2025 1:16 PM CDT Guillermina LIVE LAB BLOOD ORDERABLES Final Resu lt Performing Organization Address City/[facility]/ZIP Co de Phone Number [facility] ([place]) 1 [facility] Department [place] [address] * CBC with auto differential (03/10/2025 1:13 PM CDT) WBC 7.47 3.80 - 9.90 K/cumm Hgb 14.6 11.9 - 15.5 g/dL [facility] ([place]) Hct 44.0 35.6 - 45.5 % [facility] ([place]) Plt 377 150 - 400 K/cumm [facility] ([place]) MPV 9.4 9.1 - 12.3 fL [facility] ([place]) RBC 5.09 3.90 - 5.20 M/cumm [facility] ([place]) MCV 86.4 81.3 - 96.4 fL [facility] ([place]) MCH 28.7 27.1 - 33.3 pg [facility] ([place]) MCHC 33.2 32.3 - 35.7 g/dL [facility] ([place]) RDW CV 13.6 11.1 - 14.9 % [facility] ([place]) RDW SD 42.5 35.7 - 48.1 fL [facility] ([place]) NRBC abs 0.00 0.00 - 0.01 K/cumm [facility] ([place]) Blood 03/10/2025 1:13 PM CDT 03/10/2025 1:16 PM CDT Guillermina LIVE LAB BLOOD ORDERABLES Final Resu lt [facility] ([place]) 1 [facility] Department [place] [address] * Comprehensive metabolic panel (03/10/2025 1:13 PM CDT) Sodium 136 135 - 145 mmol/L Potassium, pl 4.2 3.3 - 4.9 mmol/L [facility] ([place]) Chloride 101 97 - 110 mmol/L [facility] ([place]) CO2 23 22 - 32 mmol/L [facility] ([place]) Anion gap 13 2 - 15 mmol/L [facility] ([place]) BUN 16 6 - 25 mg/dL [facility] ([place]) Creatinine 0.79 0.60 - 1.10 mg/dL [facility] ([place]) Glucose 103 70 - 199 mg/dL [facility] ([place]) Comment: Interpretive Data Fasting glucose >/= 126 mg/dl is diagnostic for diabetes. Fasting is defined as no caloric intake for at least 8 hours. Fasting glucose between 100 mg/dl to 125 mg/dl is diagnostic of prediabetes. In a patient with classic symptoms of hyperglycemia or hyperglycemic crisis, a random glucose >/= 200 mg/dl is diagnostic for diabetes. In the absence of unequivocal hyperglycemia, results should be confirmed by repeat testing. The classification and Diagnosis of Diabetes Diabetes Care 202; 46: S19-S40. Current interpretive data was last revised 2022. Calcium 9.2 8.5 - 10.3 mg/dL [facility] ([place]) Bilirubin, total 0.3 0.1 - 1.2 mg/dL [facility] ([place]) Protein, pl 6.9 6.5 - 8.5 g/dL [facility] ([place]) Albumin 4.2 3.5 - 5.0 g/dL [facility] ([place]) Alk phos 82 40 - 130 Units/L [facility] ([place]) ALT 13 7 - 45 Units/L [facility] ([place]) AST 16 10 - 45 Units/L [facility] ([place]) Blood 03/10/2025 1:13 PM CDT 03/10/2025 1:16 PM CDT us Guillermina LIVE LAB BLOOD ORDERABLES Final Resu lt JONO FRANCOIS ([place]) 1 [facility] [place] [address] * Hepatitis C antibody (10/25/2020 11:14 AM PHOTOGRAPHIC EQUIPMENT TECHNICIAN) Hep C Ab Nonreactive Nonreactive JONO FRANCOIS ([place]) Comment: Interpretive Data Nonreactive: Antibodies to HCV not detected. Does NOT exclude the possibility of recent exposure to HCV. Equivocal: Equivocal for HCV antibodies. Supplemental molecular testing will be automatically performed to determine infection status in accordance with current CDC screening recommendations. Reactive: Positive for HCV antibodies. This may represent current or past HCV infection. Supplemental molecular testing will be automatically performed to determine current infection status in accordance with current CDC screening recommendations. Interpretive data was last revised on 2019. Testing performed by: [facility], [address] [place] [address]., [id number] Blood specimen (specimen) 10/25/2020 11:14 AM PHOTOGRAPHIC EQUIPMENT TECHNICIAN 10/25/2020 5:39 PM PHOTOGRAPHIC EQUIPMENT TECHNICIAN us Courtney Jeffers DO LAB MICROBIOLOGY - GENERAL ORDERABLES Final Result Performing Organization Address City/[facility]/ZIP Co de Phone Number JONO FRANCOIS ([place]) 1 [facility] [place] [address] * COLONOSCOPY (06/14/2018 10:12 AM CDT) Anatomical Region Laterality Modality Other Narrative Procedure Note Stefano Dumont MD - 06/14/2018 10:12 AM CDT [facility] Patient Name: Emily Gamble Procedure Date: 06/14/2018 10:12 AM Date of : 1970 Admit Type: Outpatient Age: 48 Gender: Female Attending MD: Stefano Dumont M.D. Room: [facility] Note Status: Finalized Procedure: Colonoscopy Indications: Screening for colorectal malignant neoplasm Referring MD: Courtney Jeffers D.O. Providers: Stefano Dumont M.D. Impression: - The entire examined colon is normal. - No specimens collected. Recommendation: - Discharge patient to home. - Resume previous diet. - Continue present medications. - Repeat colonoscopy in 10 years for screeningpurposes. - Return to primary care physician as previously scheduled. Medicines: Propofol per Anesthesia Complications: No immediate complications. Estimated Blood Loss: Estimated blood loss: none. Procedure: The benefits, risks and alternatives of theprocedure and sedation were discussed and informed consent was obtained. All questions were answered. Please referto the signed informed consent document in the medical record. The scope was passed under direct vision.The Colonoscope [id number] was introducedthrough the anus and advanced to the the cecum, identifiedby appendiceal orifice and ileocecal valve. The colonoscopy was performed without difficulty. The patient tolerated the procedure well. The quality of the bowel preparation was excellent. Findings: The perianal and digital rectal examinations were normal. The colon (entire examined portion) appeared normal. Electronically signed by Stefano Dumont M.D. Stefano Dumont M.D. 06/14/2018 10:47:28 AM Number of Addenda: 0 Note Initiated On: 06/14/2018 10:12 AM Procedure Code(s): --- Professional --- G0121, Colorectal cancer screening; colonoscopy on individual not meeting criteria for high risk Diagnosis Code(s): --- Professional --- Z12.11, Encounter for screening for malignant neoplasm of colon CPT copyright 2017 [employer]. All rights reserved. The codes documented in this report are preliminary and upon clothes drier repairer reviewmay be revised to meet current compliance requirements. Recognized by the [employer] for promoting quality in endoscopy Stefano Dumont MD ENDOSCOPY PROCEDURES Final Re sult * PAP SMEAR WITH HPV (06/17/2017) Pap smear Normal Historical Provider HEALTH MAINTENANCE Final Result from Last 3 Months or Most Recently Relevant to Health Maintenance Insurance [facility] H[facility] Advance Directives For more information, please contact: [phone] * Full Code (Latest Code Status on File) Date Activated Date Inactivated Comments 06/14/2018 9:14 AM 06/14/2018 1:43 PM Care Teams Clinical Research Assistant Relationship Specialty Start Date End Date Vikki Hanna NP [address] [address] PCP - General Family Medicine 06/29/24 Stefano Dumont MD Consulting Physician Gastroenterology 04/14/19 Kathryn Noriega NP Nurse Practitioner Obstetrics and Gynecology 04/14/19
--- OUTSIDE RECORDS SUMMARY | 2025-05-02 16:47 | XMS_ITS | Clinical Summary ---
Author Organization [facility] Address [address] [place] [address] Phone Care Team Providers Care Info Analyst Name Role Phone Provider, None Primary Care Provider Unavailabl e Social History Tobacco Use Types Packs/Day Years Used Date Smoking Tobacco: Never Assessed Comments No Sex and Gender Information Value Date Recorded Sex Assigned at Not on file Legal Sex Female 10:01 PM CDT Gender Identity Not on file Sexual Orientation Not on file Plan of Treatment Health Maintenance Due Date Last Done Comments Hepatitis C Virus (HCV) Screening 1970 TdaP Immunization 1970 Hepatitis B Immunization (1 of 3 - 19+ 3-dose series) 1987 Pap Smear 1989 Cervical Cancer Screening (CCS) 1998 HPV/Cotest 1998 Cologuard 2013 Colonoscopy 2013 Colorectal Cancer Screening 2013 Immunochemical Fecal Occult Blood 2013 Pneumococcal Immunization (5 0+ years) (1 of 1 - PCV) 2018 Zoster Immunization (1 of 2) 2018 SARS-COV-2 Immunization (1 - season) 2024 Influenza Immunization (#1) 2025 Respiratory Syncytial Virus (RSV) Immunization (Adult) (1 - 1-dose 75+ series) 2043 Mammogram Discontinued 04/05/2016 Human Papillomavirus (HPV) Immunization Aged Out No longer eligible b ased on patient's age to complete this topic Meningococcal Immunization (ACWY) Aged Out No longer eligible based on patient's age to complete this topic Rotavirus Immunization Aged Out No lo nger eligible based on patient's age to complete this topic Procedures Procedure Name Priority Date/Time Associated Diagnosis Comments VINITA SCREENING BILATERAL DIGITAL W CAD Routine 04/05/2016 11:45 AM CDT Screening mammogram for high-risk patient from Last 3 Months or Most Recently Relevant to Health Maintenance Results * VINITA SCREENING BILATERAL DIGITAL W CAD (04/05/2016 11:45 AM CDT) Anatomical Region Laterality Modality breast Bilateral Mammography 04/05/2016 11:2 7 AM CDT Narrative 04/08/2016 9:30 AM CDT - VINITA SCREENING BILATERAL DIGITAL W CAD BILATERAL DIGITAL SCREENING MAMMOGRAM WITH CAD WITH MEDIOLATERAL OBLIQUE CRANIOCAUDAL: 04/05/2016 The study was acquired using digital technology and interpreted from soft copy. Current study was also evaluated with ICAD version 7.2. CLINICAL: Routine screening. Patient has no complaints. No personal history of cancer. No family history of breast cancer. COMPARISONS: Comparison is made to exams dated: 02/20/2015, 02/18/2014, and 12/18/2012 [facility]. BREAST TISSUE:The tissue of both breasts is extremely dense, which lowers the sensitivity of mammography. FINDINGS: No significant masses, calcifications, or other findings are seen in either breast. There has been no significant interval change. IMPRESSION: BI-RAD 1 NEGATIVE There is no mammographic evidence of malignancy. A 1 year screening mammogram is recommended. The patient has been or will be contacted. The patient will be entered into a reminder system with a target due date of 1 year for her next screening exam. Electronically signed by: Omar lo/bridgett:04/07/2016 08:33:48 Rn Intensive Care Unit: Jacklyn KEYS(R)(M), [facility] letter sent: Normal Exam Reading location: [facility] BI-RADS: 1 Negative Procedure Note Omar Mendoza MD - 04/08/2016 - VINITA SCREENING BILATERAL DIGITAL W CAD BILATERAL DIGITAL SCREENING MAMMOGRAM WITH CAD WITH MEDIOLATERAL OBLIQUE CRANIOCAUDAL: 04/05/2016 The study was acquired using digital technology and interpreted from soft copy. Current study was also evaluated with ICAD version 7.2. CLINICAL: Routine screening. Patient has no complaints. No personal history of cancer. No family history of breast cancer. COMPARISONS: Comparison is made to exams dated: 02/20/2015, 02/18/2014, and 12/18/2012 [facility]. BREAST TISSUE:The tissue of both breasts is extremely dense, which lowers the sensitivity of mammography. FINDINGS: No significant masses, calcifications, or other findings are seen in either breast. There has been no significant interval change. IMPRESSION: BI-RAD 1 NEGATIVE There is no mammographic evidence of malignancy. A 1 year screening mammogram is recommended. The patient has been or will be contacted. The patient will be entered into a reminder system with a target due date of 1 year for her next screening exam. Electronically signed by: Omar lo/bridgett:04/07/2016 08:33:48 Rn Intensive Care Unit: Jacklyn KEYS(Tessy)(Shanta), [facility] letter sent: Normal Exam Reading location: [facility] BI-RADS: 1 Negative us Kathryn Noriega MIRROR POLISHER, PATTERN GRADER IMG MAMMO ORDERABLES Fin al Result from Last 3 Months or Most Recently Relevant to Health Maintenance Care Teams Info Analyst Relationship Specialty Start Date End Date Provider, None [place] PCP - General 04/05/16
--- OUTSIDE RECORDS SUMMARY | 2025-05-02 16:47 | XMS_ITS | Encounter Summary ---
Author Organization [facility] Address [address] [place] [address] Care Team Providers Care Program Associate Name Role Phone Stefano Dumont MD Unavailable [phone] Kathryn Noriega NP Unavailable [phone] Vikki Hanna NP Primary Care Provider [phone] Encounter Details Date Type Department Care Team (Late st Contact Info) Description 03/16/2025 Results Follow-Up [facility] Primary Care at [address] [place] [address] Vikki Hanna NP [address] [facility] [address] [place] [address] Screening Mammogram Bilateral W [place] Social History Tobacco Use Types Packs/Day Years Used Date Smoking Tobacco: Never Smokeless Tobacco: Never Alcohol Use Standard Drinks/Week Comments Yes 0 [...] on file Legal Sex Female 11:21 PM TREE PLANTER Gender Identity Female 10/21/2022 12:24 PM TREE PLANTER Sexual Orientation Straight 10/21/2022 12 :24 PM TREE PLANTER documented as of this encounter Plan of Treatment Not on file documented as of this encounter Visit Diagnoses Not on filedocumented in this encounter Care Teams Program Associate Relationship Specialty Start Date End Date Vikki Hanna NP [address] [facility] [address] [place] [address] PCP - General Family Medicine 06/29/24 Stefano Dumont MD Consulting Physician Gastroenterology 04/14/19 Kathryn Noriega NP Nurse Practitioner Obstetrics and Gynecology 04/14/19 documented as of this encounter
--- OUTSIDE RECORDS SUMMARY | 2025-05-02 16:47 | XMS_ITS | Encounter Summary ---
Author Organization [facility] Address [address] [place] [address] Care Team Providers Care Safety Engineer Name Role Phone Unavailable Primary Care Provider Unavailabl e Encounter Details Date Type Department Care Team (Late st Contact Info) Description 04/22/2022 Lab Requisition [facility] Services [facility] [address] [place] [phone] Charan Lind MD [address] [facility] [address] [place] [address] Social History Tobacco Use Types Packs/Day Years Used Date Smoking Tobacco: Never Assessed Comments Unknown Sex and Gender Information Value Date Recorded Sex Assigned at Not on file Legal Sex Female 4:25 AM CONTACT CENTRE SUPERVISOR Gender Identity Not on file Sexual Orientation Not on file COVID-19 Exposure Response Date Recorded In the last 10 days, have yo u been in contact with someone who was confirmed or suspected to have Coronavirus/COVID-19? Yes 04/22/2022 9:56 AM CDT documented as of this encounter Plan of Treatment Not on file documented as of this encounter Procedures Procedure Name Priority Date/Time Associated Diagnosis Comments REFERENCE LAB PROCESSING FEE Routine 04/22/2022 10:15 AM CDT documented in this encounter Results * REFERENCE LAB PROCESSING FEE (04/22/2022 10:15 AM CDT) REFERENCE LAB SENDOUT Sent to Ref Lab 04/22/2022 12:47 PM CDT [facility] Other, specify BLOOD SPECIMEN / Unknown Collection / Unknown 04/22/2022 10:15 AM CDT 04/22/2022 10:21 AM CDT us Charan Lind MD CHEMISTRY ORDERABLES Final Re sult Performing Organization Address [facility] Co de Phone Number [facility]# [id number] [address] [place] [address] documented in this encounter Visit Diagnoses Not on filedocumented in this encounter
--- OUTSIDE RECORDS SUMMARY | 2025-05-02 16:47 | XMS_ITS | Clinical Summary ---
Author Organization [facility] Address [address] [place] [address] Care Team Providers Care Appeals Board Referee Name Role Phone Unavailable Primary Care Provider Unavailabl e Social History Tobacco Use Types Packs/Day Years Used Date Smoking Tobacco: Never Assessed Comments Unknown Sex and Gender Information Value Date Recorded Sex Assigned at Not on file Legal Sex Female 4:25 AM FREELANCE DIRECTOR Gender Identity Not on file Sexual Orientation Not on file Plan of Treatment Health Maintenance Due Date Last Done Comments HEPATITIS B VACCINES (1 of 3 - 19+ 3-dose series) 1987 HPV/Cotest (21-29) 1989 CERVICAL CANCER SCREENING 1998 HPV/Cotest (30-65) 1998 PAP SMEAR 1998 COLORECTAL SCREENING 2013 Colorectal Cancer Screening 2013 FIT-DNA Q 3 years 2013 FIT/FOBT Q 1 year 2013 Flex Sig/CT Colonography Q 5 years 2013 ZOSTER VACCINE (2 of 2) 05/02/2022 03/07/2022 BREAST CANCER SCREENING 10/24/2022 10/24/19 22, 09/20/2020, 08/09/2019, Additional history exists INFLUENZA VACCINE (#1) 2025 , 07/20/2020, 08/05/2019, Additional history exists DTAP/TDAP/TD VACCINES (3 - T d or Tdap) 02/18/2029 02/18/2019, 11/29/2008
--- OUTSIDE RECORDS SUMMARY | 2025-05-02 16:47 | XMS_ITS | Clinical Summary ---
Author Organization [facility] Building B Address [address] [place] [address] Care Team Providers Care Negative Retoucher Name Role Phone Stefano Dumont MD Unavailable [phone] Kathryn Noriega NP Unavailable [phone] Vikki Hanna NP Primary Care Provider [phone] Allergies Active Allergy Reactions Criticality Noted Date [...] within 12 hours or as directed by . 14 patch 03/10/20 25 Active naproxen (NAPROSYN) [...] 11/04/2023 Assessment & Plan (11/05/2023 5:18 PM PVC LOADER): - New or chronic worsening conditions: no [...] 11/03/2022 Assessment & Plan (11/03/2022 3:38 PM PVC LOADER): Patient already has an established relationship with a utility assembler. Patient states that she would call on her own and schedule an appointment. In the meantime, may try mzwy-ubv-tbfucoi pain reliever of choice. Scalp mass 10/25/2020 Assessment & Plan (10/25/2020 1:26 PM PVC LOADER): Referred to plastic surgeon for further evaluation and management. Family history of melanoma 07/20/2020 Melanocytic nevi of trunk 07/20/2020 Seborrheic keratosis 07/20/2020 Solar lentigo 07/20/2020 Atopic dermatitis 06/06/2019 Assessment & Plan (06/06/2019 8:31 PM CDT): Rx given, use as directed. 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 Assessment & Plan (10/28/2021 10:45 PM PVC LOADER): Clinically improved, continue current prescription medications. Assessment & Plan (04/25/2021 11:15 AM CDT): Clinically improved, continue current meds. Assessment & Plan (10/25/2020 1:26 PM PVC LOADER): Stable. Cont. Current meds. Assessment & Plan (04/24/2020 1:11 PM CDT): Rx sent, ambien 5 - 10 mg qhs prn insomnia. Assessment & Plan (10/24/2019 8:52 AM PVC LOADER): Clinically improved, continue current meds. Assessment & [...] 04/14/2019 Assessment & Plan (11/05/2023 5:17 PM PVC LOADER): Wt Readings from Last 3 Encounters: 11/04/23 [...] Asthma Assessment & Plan (11/03/2022 3:38 PM PVC LOADER): Asymptomatic, at baseline, continue current prescription medications, albuterol. Assessment & Plan (04/24/2020 1:11 PM CDT): Asx. Cont current mgmt. Assessment & Plan (10/24/2019 8:52 AM PVC LOADER): Stable. Cont. Current meds. Assessment & Plan [...] allergies Assessment & Plan (08/05/2019 10:09 AM PVC LOADER): Has been taking Sudafed, advised patient to switch to Zyrtec or Claritin for daily use. Resolved Problems Problem Noted Date Diagnosed Date Resolved Date Mild reactive airways disease 09/30/2024 09/30/2024 Establishing care with jackeline wadsworth, encounter for 06/29/2024 09/30/2024 Skin fissure 07/20/2020 11/03/2022 Generalized anxiety disorder 04/14/2019 04/24/2020 Assessment & Plan (10/24/2019 10:23 AM PVC LOADER): Stable, improved with rest. Assessment & Plan [...] be a harm to yourself or others. Encounters Date Type Department Care Team Description 03/16/2025 8:24 AM CDT - 03/16/2025 11:59 PM CDT Hospital Encounter [facility] [address] [place] [address] Screening mammogram, encounter for Discharge Disposition: Discharge to home or self care 03/16/2025 Results Follow-Up [facility] Primary Care at [address] [place] [phone] Vikki Hanna NP Screening Mammogram Bilateral W Barak 03/10/2025 12:47 PM CDT - 03/10/2025 3:44 PM CDT Emergency [facility] [address] [place] [address] Acute midline low back pain without sciatica (Primary Dx); Gall stones Discharge Disposition: Discharge to home or self care from Last 3 Months Immunizations Immunization Administration Dates Next Due Influenza, [...] Pcv20 06/12/2023 Tdap 02/18/2019,11/29/2008 ZOSTER Recombinant 08/23/2022,03/07/2022 Surgical History Surgery Date Site/Laterality Comments OTHER SURGICAL HISTORY menorrhagia: fibroid embolization Medical History Medical History Date Comments Hx Other Medical 2002 menorrhagia Asthma Asthma GERD (gastroesophageal reflux disease) 10/07/2020 Anxiety lifelong Arthritis 2005 Migraines 2001 Family History Medical History Relation Name Comments Cancer Father Dustin Juarez Coronary artery disease Father Dustin Juarez Alphonso nary artery disease; Hyperlipidemia Father Dustin Juarez Hyperlipidemi a; Prostate cancer Father Dustin Juarez Cancer, pros lerma; Heart attack Father's Brother Private Arthritis Mother Vidya Juarez Hyperlipidemia Mother Vidya Juarez Hyperlipidemi a; Alzheimer's disease Mother's Brother Private Prostate cancer Other Family histo ry of Cancer, prostate; Relation Name Status Comments Father Dustin Juarez Father's Brother Private Mother Vidya Juarez Mother's Brother Private Other Social History Tobacco Use Types Packs/Day Years [...] on file Legal Sex Female 11:21 PM PVC LOADER Gender Identity Female 10/21/2022 12:24 PM PVC LOADER Sexual Orientation Straight 10/21/2022 12 :24 PM PVC LOADER Obstetrics History Para Term AB IAB SAB Ectopic Multiple Livin g Live Births 1 1 1 Date Outcome GA Total Labor Labor/2nd/3rd Weight Sex Type Anes PTL Kati A1 A5 Name Clin Term Last Filed Vital Signs Vital Sign Reading [...] 03/16/2025 8:29 AM CDT Plan of Treatment Health Maintenance Due Date Last Done Comments Hepatitis B Screening 1986 Cervical Cancer Screening 06/17/2018 06/17/2017 Covid-19 Vaccine (2023- 5 season) 2024 06/28/2023, 08/29/2022, 12/29/2021, Additional history exists Regular Well Visit/Exam 18-64 11/04/2024, 11/04/2023, 11/03/2022, Additional history exists Influenza Vaccine (#1) 2025 , 06/30/2022, 06/17/2021, Additional history exists Depression Screening 06/29/2025 06/29/2024, 11/04/2023, 11/03/2022, Additional history exists Breast Cancer Screening-Mammogram 03/16/2027 03/16/2025, 01/12/2024, 11/26/2022, Additional history exists Colon Cancer Screening-Colonoscopy 06/14/2028 06/14/2018 DTaP/Tdap/Td Vaccine (3 - Td or Tdap) 02/18/2029 02/18/2019, 11/29/2008 Colon Cancer Screening-CT Colonography Discontinued 06/14/2018 Colon Cancer Screening-DNA Stool Discontinued 06/14/20 Colon Cancer Screening-FIT Discontinued 06/14/2018 Colon Cancer Screening-Sigmoidoscopy Discontinued 06/14/2018 Hepatitis C Screening Completed 10/25/2020 Zoster Vaccine Completed 08/23/2022, 03/07/2022 Pneumococcal vaccine <65 Completed 06/12/2023 Procedures Procedure Name Priority Date/Time Associated Diagnosis [...] HEPATITIS C ANTIBODY Routine 10/25/2020 11:14 AM PVC LOADER Encounter for hepatitis C screening test for [...] Electronically signed by Elie Kelly M.D. RB: DARIANA Report ID: [id number] Reading Location: [id number] Procedure Note Elie Kelly MD - 03/10/2025 [...] Electronically signed by Elie Kelly M.D. RB: DARIANA Report ID: [id number] Reading Location: [place] [address] us [facility] LIVE IMG US PROCEDURES Final [...] definite evidence of diverticulitis. There is a paweyvqs-lk-blvrq amount of retained fecal debris in the [...] No definite evidence of bowel obstruction. 4. Qoxxeyrg-ba-tmhpc amount of retained fecal debris in the [...] Pierre Sterling D.O. PS: PS Report ID: [id number] Reading Location: [id number] Procedure Note Pierre Sterling, - 03/10/2025 EXAM DESCRIPTION: CT ABDOMEN PELVIS [...] definite evidence of diverticulitis. There is a zyvskfjz-ub-yoziz amount of retained fecal debris in the [...] No definite evidence of bowel obstruction. 4. Jcvzgiph-ck-fgbqd amount of retained fecal debris in the [...] Pierre Sterling D.O. PS: PS Report ID: [id number] Reading Location: [place] [address] PROCEDURES Final Result [...] tendency for uric acid stone formation. Source: Ochoa Cortica Current Interpretive Data was last revised on [...] [facility] LAB MICROBIOLOGY - GENERAL ORDE RABLES Final Result [facility] ([place]) 1 [facility] [place] [address] * (ABNORMAL) Urinalysis, microscopic only (03/10/2025 1:47 PM CDT) WBC, ur 0-5 0 - 5 /HPF RBC, ur 0-2 0 - 2 /HPF [facility] ([place]) Epithelial cells, squamous, ur 1-5 0 - 5 /HPF [facility] ([place]) Mucous, ur Present(A) [facility] ([place]) Culture Reflex Comment Reflex conditions for urine culture (WBC >10) not met. [facility] ([place]) Urine 03/10/2025 1:47 PM CDT 03/10/2025 1:52 PM CDT [facility] LAB URINE ORDERABLES Final Resu lt [facility] ([place]) 1 [facility] [place] [address] * eGFR (03/10/2025 1:13 PM CDT) eGFR [...] of Race in Diagnosing Kidney Disease, JASN 2020). The CKD-EPI equation should not be used for patients with unstable renal function and has not been validated in children and those over 70. Current interpretive data was last reviewed 2021. Blood 03/10/2025 1:13 PM CDT 03/10/2025 1:16 PM CDT us [facility] LIVE LAB BLOOD ORDERABLES Final Resu lt [facility] ([place]) 1 [facility] Department [place] [address] * Differential, auto (03/10/2025 1:13 PM CDT) Neutrophil abs 4.81 1.50 - 6.50 K/cumm Imm gran abs 0.03 0.00 - 0.10 K/cumm [facility] ([place]) Lymphocyte abs 1.54 0.80 - 3.30 K/cumm [facility] ([place]) Monocyte abs 0.76 0.20 - 0.80 K/cumm [facility] ([place]) Eosinophil abs 0.25 0.00 - 0.50 K/cumm [facility] ([place]) Basophil abs 0.08 0.00 - 0.10 K/cumm [facility] ([place]) Neutrophil pct 64.4 % [facility] ([place]) Comment: Interpretive Data Percent cell count reference ranges are not reported, since discordance with absolute values may lead to misinterpretation of CBC data. Current Interpretive Data was last revised on 2018. Imm gran pct 0.4 % [facility] ([place]) Comment: Interpretive Data Percent cell count reference ranges are not reported, since discordance with absolute values may lead to misinterpretation of CBC data. Current Interpretive Data was last revised on 2018. Lymphocyte pct 20.6 % [facility] ([place]) Comment: Interpretive Data Percent cell count reference ranges are not reported, since discordance with absolute values may lead to misinterpretation of CBC data. Current Interpretive Data was last revised on 2018. Monocyte pct 10.2 % [facility] ([place]) Comment: Interpretive Data Percent cell count reference ranges are not reported, since discordance with absolute values may lead to misinterpretation of CBC data. Current Interpretive Data was last revised on 2018. Eosinophil pct 3.3 % [facility] ([place]) Comment: Interpretive Data Percent cell [...] LIVE LAB BLOOD ORDERABLES Final Resu lt [facility] ([place]) 1 [facility] Department [place] [address] * CBC with auto differential (03/10/2025 1:13 [...] Final Resu lt [facility] ([place]) 1 [facility] [place] [address] * Comprehensive metabolic panel (03/10/2025 1:13 PM [...] ([place]) AST 16 10 - 45 Units/L [facility] ([place]) Blood 03/10/2025 1:13 PM CDT 03/10/2025 1:16 PM CDT us [facility] LAB BLOOD ORDERABLES Final Resu lt Performing Organization Address City/[facility]/ZIP Co de Phone Number [facility] ([place]) 1 [facility] [place] [address] * Hepatitis C antibody (10/25/2020 11:14 AM PVC LOADER) Hep C Ab Nonreactive Nonreactive [facility] ([place]) Comment: Interpretive Data Nonreactive: Antibodies to HCV [...] last revised on 2019. Testing performed by: [facility], [address] [place] [address], [place]., [address] Blood specimen (specimen) 10/25/2020 11:14 AM PVC LOADER 10/25/2020 5:39 PM PVC LOADER us Courtney Jeffers DO LAB MICROBIOLOGY - GENERAL ORDERABLES Final Result Performing Organization Address City/[facility]/ZIP Co de Phone Number [facility] ([place]) 1 [facility] [place] [address] * COLONOSCOPY (06/14/2018 10:12 AM CDT) Anatomical Region Laterality Modality Other Narrative Procedure Note Stefano Dumont MD - 06/14/2018 10:12 AM CDT [facility] Patient Name: Emily Gamble Procedure Date: 06/14/2018 10:12 AM Date of : 1970 Admit Type: Outpatient Age: 48 Gender: Female Attending MD: Stefano Dumont M.D. Room: [facility] ENDOSCOPY CAPSULE Note Status: Finalized Procedure: Colonoscopy [...] scope was passed under direct vision.The Colonoscope [id number] was introducedthrough the anus and advanced to [...] malignant neoplasm of colon CPT copyright 2017 [employer]. All rights reserved. The codes documented in this report are preliminary and upon director of operations reviewmay be revised to meet current compliance requirements. Recognized by the [employer] for promoting quality in endoscopy Stefano Dumont MD ENDOSCOPY PROCEDURES Final Re sult * HM PAP SMEAR WITH HPV (06/17/2017) HM Pap smear Normal Historical Provider HEALTH MAINTENANCE Final Result from Last 3 Months or Most Recently Relevant to Health Maintenance Insurance [facility] HMO [facility] Advance Directives For more information, please contact: [phone] * Full Code (Latest Code Status on File) Date Activated Date Inactivated Comments 06/14/2018 9:14 AM 06/14/2018 1:43 PM Care Teams Negative Retoucher Relationship Specialty Start Date End Date Vikki Hanna NP [id number] [facility] [address] [place] [address] PCP - General Family Medicine 06/29/24 Stefano Dumont MD Consulting Physician Gastroenterology 04/14/19 Kathryn Noriega NP Nurse Practitioner Obstetrics and Gynecology 04/14/19
[2025-05-02 16:48] VITALS: BP 132/89; PULSE 70; RESP 16; TEMP 36.7; O2SAT 100
--- NOTE | 2025-05-02 17:18 | ED_ITS ---
HPI - Ear Problem General Chief complaint: Ear Stated complaint: Ear pain Source: patient Mode of arrival: ambulatory Limitations: no limitations History of Present Illness HPI Narrative: 55-year-old female presented for complaint of bilateral ear pain. Onset yesterday. she had headache and nausea yesterday which is improved today. She has used gxzv-ukm-wnbgxjw ear drops without improvement. Denies Vomiting, diarrhea, fevers or lethargy. MD Complaint: ear pain Related Data Home Medications ?Medication ?Instructions ?Recorded ?Confirmed ?Last Taken ?Type zolpidem 10 mg tablet mg 05/02/25 Unknown History Allergies Allergy/AdvReac Type Severity Reaction Status Date / Time clindamycin Allergy Intermediate HIVES Verified 05/02/25 16:57 mold Allergy Mild Sneezing Verified 05/02/25 16:57 pollen extracts Allergy Mild Sneezing Verified 05/02/25 16:57 Review of Systems Review of Systems: CONSTITUTIONAL: Denies malaise, chills, or fever. EYES: Denies visual changes, redness, or discharge. ENT: Denies rhinorrhea, congestion, sinus pain, and sore throat. Reports ear pain CARDIOVASCULAR: Denies chest pain, palpitations, or edema. RESPIRATORY: Denies cough or dyspnea. GASTROINTESTINAL: Denies abdominal pain, nausea, vomiting, diarrhea SKIN: Denies rash or itching. MUSCULOSKELETAL: Denies myalgia. NEUROLOGIC: Denies headache. All systems reviewed & are unremarkable except as noted in HPI and below PMFSH Past Medical History Medical History (Updated 05/02/25 @ 17:38 by Whit Amezquita, ANTOLIN) Insomnia Asthma Comments At time of signature, agree with nursing past medical, surgical, social and family history. There is no relevant family history pertinent to the presenting complaint Exam Narrative: GENERAL: Well-appearing, EYES: PERRLA, conjunctivae clear ENT: Nares clear. Mucous membranes moist. TMs normal light reflex, clear effusion bilaterally. canals not erythematous, no drainage, no tragal tenderness. Oropharynx erythematous without lesions. no drooling, no hoarseness, no trismus, uvula midline. NECK: Supple. No lymphadenopathy CHEST: Clear to auscultation, breath sounds equal. HEART: Regular rate and rhythm. No murmur heard. SKIN: Warm, dry, no rash. NEURO: Alert and oriented x3. PSYCH: Normal mood and affect Course Course Emergency Course: Patient is aware of diagnosis, understands and agrees to treatment plan. Anticipatory guidance given. Patient agrees to follow-up as directed and is aware of reasons to seek care at the emergency department. Portions of this record may have been created with voice recognition software Level of Care: Express Care Visit Vital Signs Vital signs: Vital Signs Temperature 98.1 F 05/02/25 16:48 Pulse Rate 70 05/02/25 16:48 Respiratory Rate 16 05/02/25 16:48 Blood Pressure 132/89 05/02/25 16:48 Pulse Oximetry 100 05/02/25 16:48 Oxygen Delivery Room Air 05/02/25 16:48 Temperature 98.1 F 05/02/25 16:48 Pulse Rate 70 05/02/25 16:48 Respiratory Rate 16 05/02/25 16:48 Blood Pressure 132/89 05/02/25 16:48 Pulse Oximetry 100 05/02/25 16:48 Oxygen Delivery Room Air 05/02/25 16:48 Reviewed Medical Decision Making MDM Narrative Medical decision making narrative: Discussed physical exam findings and strep test. Advised supportive measures and signs/symptoms to go to the ER. Patient is appropriate for outpatient treatment and follow-up. Differential Diagnosis Differential Diagnosis: Coronavirus, strep pharyngitis, allergic rhinitis, upper respiratory tract infection, sinusitis, rhinosinusitis, nasopharyngitis, viral pharyngitis, otitis media, otitis externa, eustachian tube dysfunction, foreign body, cerumen impaction. Vital Signs Vital Signs: Vital Signs Temperature 98.1 F 05/02/25 16:48 Pulse Rate 70 05/02/25 16:48 Respiratory Rate 16 05/02/25 16:48 Blood Pressure 132/89 05/02/25 16:48 Pulse Oximetry 100 05/02/25 16:48 Oxygen Delivery Room Air 05/02/25 16:48 Temperature 98.1 F 05/02/25 16:48 Pulse Rate 70 05/02/25 16:48 Respiratory Rate 16 05/02/25 16:48 Blood Pressure 132/89 05/02/25 16:48 Pulse Oximetry 100 05/02/25 16:48 Oxygen Delivery Room Air 05/02/25 16:48 Discharge Plan Discharge Clinical Impression: Acute serous otitis media Patient Disposition: Home Condition: Stable Instructions: Antibiotic Form, Fluid In The Ear (Serous Otitis Media) (ED) Additional Instructions: Rapid strep swab was negative today You will be notified in a few days if the culture comes back positive for strep, and appropriate antibiotics will be called in at that time. if symptoms are due to a viral illness, it is not treated with antibiotics. Viral symptoms can be present for up to 10-14 days. Recommendations: Flonase spray and Zyrtec for sinus congestion Tylenol every 8 hours as needed for pain/fever Rest and stay hydrated. --Follow up with your PCP --Go to the ER immediately if you cannot swallow your saliva, trouble breathing/wheezing, throat swelling, pain is persistent and severe Patient Language: Frisian Prescriptions: No Action zolpidem 10 mg tablet Follow-up/Referrals: Jacques,Vikki Andersen CNP [Primary Care Provider] - Time of Disposition: 17:38
[2025-05-02 17:39] LABS: EDSTREPNEGPOS1 Negative (Negative)
== END 2025-05-02 17:42 | disposition home or self-care (01) ==
PROVIDERS: Emergency Provider Nurse Practitioner Family; PCP Nurse Practitioner
DX: H65.03 Acute serous otitis media, bilateral (principal); J45.909 Unspecified asthma, uncomplicated
CPT/HCPCS: 87081; 87880; 99213; G0463